=== PATIENT | male | born 1985 | race Caucasian/White ===

== ENCOUNTER → 2016-09-06 | Outpatient (CLI) | payer MEDICAID ==
--- NOTE | 2016-09-06 12:30 | RAD ---
HISTORY: Left wrist pain, nontraumatic Study: Left wrist four view Comparison: None Findings: No evidence for acute cortical disruption or dislocation can be identified. The carpal bones appear well aligned. The visualized portions of the distal radius and ulna are unremarkable. No signific ant soft tissue abnormality can be identified. the joints are normal. IMPRESSION: 1. Negative exam. Reported By:
--- NOTE | 2016-09-06 12:31 | RAD ---
HISTORY: Right wrist pain Study: Right wrist four view Comparison: Findings: No evidence for acute cortical disruption or dislocation can be identified. The carpal bones appear well aligned. The visualized portions of the distal radius and ulna are unremarkable. No signific ant soft tissue abnormality can be identified. the joints are normal. IMPRESSION: 1. Negative exam. Reported By:
== END ==
LOC: RAD 11:28
PROVIDERS: ATTEND Orthopaedic Surgery
DX: G56.03 Carpal tunnel syndrome, bilateral upper limbs (principal)
CPT/HCPCS: 73100

== ENCOUNTER → 2016-09-07 | Outpatient (CLI) | payer MEDICAID ==
[2016-09-07 16:55] LABS: BASOPHILS # (AUTO) 0.1 X10^3/uL (0.0-0.1); BASOPHILS % (AUTO) 1.3 % (0.2-1.0); EOSINOPHILS # (AUTO) 0.5 x10^3/uL (0.0-0.2); EOSINOPHILS % (AUTO) 5.2 % (0.9-2.9); HEMATOCRIT 44.6 % (42.0-54.0); HEMOGLOBIN 15.4 g/dL (13.5-18.0); LYMPHOCYTES # (AUTO) 2.2 X10^3/uL (1.3-2.9); LYMPHOCYTES % (AUTO) 23.6 % (21.0-51.0); MEAN CORPUSCULAR HEMOGLOBIN 29.5 pg (27.0-34.0); MEAN CORPUSCULAR HGB CONC 34.6 g/dL (33.0-35.0); MEAN CORPUSCULAR VOLUME 85.5 fL (80.0-100.0); MEAN PLATELET VOLUME 8.4 fL (7.4-11.0); MONOCYTES # (AUTO) 0.8 x10^3/uL (0.3-0.8); MONOCYTES % (AUTO) 8.3 % (0.0-13.0); NEUTROPHILS # (AUTO) 5.6 x10^3/uL (2.2-4.8); NEUTROPHILS % (AUTO) 61.6 % (42.0-75.0); PLATELET COUNT 254 X10^3/uL (150.0-450.0); RED BLOOD COUNT 5.21 X10^6/uL (4.7-6.0); RED CELL DISTRIBUTION WIDTH 13.2 % (11.6-16.5); WHITE BLOOD COUNT 9.2 X10^3/uL (3.6-10.0)
[2016-09-07 17:01] LABS: BILIRUBIN,URINE NEGATIVE (NEGATIVE); BLOOD/HEMOGLOBIN,URINE NEGATIVE (NEGATIVE); GLUCOSE, URINE NEGATIVE (NEGATIVE); KETONES,URINE NEGATIVE (NEGATIVE); LEUKOCYTE ESTERASE ,URINE NEGATIVE (NEGATIVE); NITRITES,URINE NEGATIVE (NEGATIVE); PROTEIN,URINE 1+ (NEGATIVE); UROBILINOGEN,URINE NORMAL (NORMAL)
--- NOTE | 2016-09-07 17:05 | RAD ---
HISTORY: Preop for wrist surgery Study: PA and lateral Comparison:none Findings: The trachea is midline. The cardiac silhouette is unremarkable. The lungs are clear without focal infiltrate or effusion. The bony thorax is unremarkable. IMPRESSION: 1. No acute cardiopulmonary disease. Reported By:
[2016-09-07 17:08] LABS: APPEARANCE,URINE CLEAR (CLEAR); BACTERIA,URINE TRACE /HPF (NEGATIVE); COLOR,URINE DARK YELLOW (YELLOW); RBC,URINE 0-1 /HPF (NEGATIVE); SQUAMOUS EPITHELIAL CELL,UR RARE /HPF (NEGATIVE)
[2016-09-07 17:09] LABS: AMORPHOUS SEDIMENT,UR 1+ /HPF (NEGATIVE); MUCUS,URINE MODERATE /HPF (NEGATIVE)
[2016-09-07 17:11] LABS: ALANINE AMINOTRANSFERASE 59 Units/L (12-78); ALBUMIN 4.2 g/dL (3.4-5.0); ALKALINE PHOSPHATASE 88 Units/L (46-116); ASPARTATE AMINO TRANSFERASE 28 Units/L (15-37); BLOOD UREA NITROGEN 12 mg/dL (7-18); CALCIUM 9.1 mg/dL (8.5-10.1); CHLORIDE 104 mmol/L (98-107); CREATININE 1.01 mg/dL (0.70-1.30); GLUCOSE 92 mg/dL (65-99); SODIUM 142 mmol/L (136-145); TOTAL PROTEIN 8.4 g/dL (6.4-8.2); eGFR BLACK RACES > 60 (>60); eGFR NON BLACK RACES > 60 (>60)
[2016-09-07 17:40] LABS: ERYTHROCYTE SEDIMENTATION RATE 8 MM/HOUR (0-15)
== END ==
LOC: RAD 15:54
PROVIDERS: ATTEND Orthopaedic Surgery
DX: Z01.818 Encounter for other preprocedural examination (principal); Z01.810 Encounter for preprocedural cardiovascular examination; Z01.811 Encounter for preprocedural respiratory examination; Z79.899 Other long term (current) drug therapy; Z11.8 Encounter for screening for other infectious and parasitic diseases; G56.03 Carpal tunnel syndrome, bilateral upper limbs
CPT/HCPCS: 36415; 71020; 80053; 81001; 85025; 85652; 86140; 87641; 93005; 93010

== ENCOUNTER 2016-09-13 06:41 | Day surgery (SDC) | payer MEDICAID ==
[2016-09-13] MEDS ORDERED: D5 LR 1000 ML 1,000 ML IV ONE (06:47)
[2016-09-13] MEDS: ANCEF VIAL 1 GM ONE ×2 (07:26→07:51)
[2016-09-13] MEDS: BACTROBAN OINT ONE ×2 (07:27→08:29)
[2016-09-13] MEDS: NS 50 ML IV 50 ML IV ONE ×2 (07:27→07:51)
[2016-09-13] MEDS ORDERED: NS IRRIGATION 1000 ML 1,000 ML with BACITRACIN VIAL 50,000 UNT IR ONE ×4 (07:27)
[2016-09-13] MEDS ORDERED: FENTANYL INJ 100 mcg ONE ×2 (07:46→09:00)
[2016-09-13] MEDS ORDERED: BICITRA 30 ML PO ONE (07:52)
[2016-09-13] MEDS ORDERED: LR 1000 ML IV 1,000 ML IV ONE (08:59)
[2016-09-13] MEDS ORDERED: MARCAINE 0.25% INJ ONE (09:16)
[2016-09-13] MEDS ORDERED: DILAUDID INJ IVP ONE ×2 (10:16→10:40)
[2016-09-13] MEDS ORDERED: DILAUDID INJ ONE (10:18)
[2016-09-13] MEDS ORDERED: BENADRYL INJ 50 MG VIAL IVP PRN (10:21)
[2016-09-13] MEDS ORDERED: REGLAN INJ 10 MG VIAL IVP PRN (10:21)
[2016-09-13] MEDS ORDERED: DILAUDID INJ IVP PRN (10:21)
[2016-09-13] MEDS ORDERED: PHENERGAN INJ 25 MG IVP PRN (10:21)
[2016-09-13] MEDS ORDERED: ZOFRAN INJ 4 MG VIAL IVP PRN ×2 (10:21→10:24)
[2016-09-13] MEDS ORDERED: PERCOCET TAB 5/325 MG PO PRN (10:24)
[2016-09-13] MEDS ORDERED: PHENERGAN INJ 25 MG IVP ONE (10:38)
[2016-09-13 11:56] VITALS: BP 167/106
[2016-09-13] MEDS ORDERED: ZOFRAN INJ 4 MG VIAL ONE (12:38)
[2016-09-13] MEDS ORDERED: VERSED ONE (12:38)
[2016-09-13] MEDS ORDERED: REGLAN INJ 10 MG VIAL ONE (12:38)
[2016-09-13] MEDS ORDERED: SUPRANE IN ONE (12:38)
[2016-09-13] MEDS ORDERED: DIPRIVAN 1 GM ONE (12:38)
== END 2016-09-13 12:02 | disposition home or self-care (01) | DRG 42 ==
LOC: SURG1 06:41
PROVIDERS: ATTEND Orthopaedic Surgery
PROC: 01N50ZZ Release Median Nerve, Open Approach (ICD-10-PCS; principal; 2016-09-13 07:30)
DX: G56.03 Carpal tunnel syndrome, bilateral upper limbs (principal)
CPT/HCPCS: A4222; S0020; J0690; J1170; J2250; J2405; J2550; J2765; J3010; J3490; J7120

== ENCOUNTER 2016-10-26 20:10 | Emergency (ER) | payer SELFPAY ==
[2016-10-26 20:19] VITALS: BP 151/93
--- NOTE | 2016-10-26 22:02 | DR.GENAD ---
HPI - PCP Primary Care Physician: NFD - Complaint/Symptoms Chief Complaint Doctors Comments: tingling in my arms since I had my carpal tunnel surgery. Chief Complaint:: PT STATES" MY LEFT ARM GOES NUMB AND HURTS AND I HAVE PAIN IN MY RT LEG AND IN MY NUB WHERE I HAD MY LEG TOOK OFF" - Nurses notes reviewed Nurses Notes Review: Yes - Source History Provided: Patient - Mode of Arrival Mode of Arrival: Ambulatory - Timing Onset of Chief Complaint: 10/26/16 PMH - PMH Past Medical History: No Past Surgical History: Yes Surgical History: Ortho Surgery Past Surgical History Comment: SHAWN AMPUTEE - Family History History of Family Medical Conditions: No - Social History Type of Tobacco Use: None Does any household member use tobacco: No Alcohol Use: None Do you use any recreational Drugs:: No Lives With: Family Lives Where: Home - infectious screening In the last 2 months have you had wt loss of >10#?: NO Have you had fever, night sweats or hemotysis?: No Have you traveled outside the country in the last 6 months?: No Isolation: Standard ROS - Review of Systems Respiratoy: No Symptoms Reported Cardiovascular: No Symptoms Reported Gastrointestinal/Abdominal: No Symptoms Reported Genitourinary: No Symptoms Reported Neurological: Numbness, Tingling Musculoskeletal: Other (phantom pain.) Endocrine: No Symptoms Reported Psychiatric: No Symptoms Reported All Other Systems: Reviewed and Negative PE - Vital Signs Vitals: Temperature 98.3 F Pulse Rate 84 Respiratory Rate 18 Blood Pressure 151/93 O2 Sat by Pulse Oximetry 99 - General Limitations: No Limitations General Appearance: Alert, In No Apparent Distress - Head Head Exam: Normal Inspection - Neck Neck Exam: Normal Inspection, Full ROM, Trachea Midline - Chest Chest Inspection: Normal Inspection - Respiratory Respiratory Exam: Normal Lung Sounds Bilat - Cardiovascular Cardiovascular Exam: Regular Rate, Normal Rhythm, Normal Heart Sounds - Abdominal Exam Abdominal Exam: Normal Inspection - Extremities Extremities Exam: Other (l BKA ) - Back Back Exam: Normal Inspection - Neurologic Neurological Exam: Alert, Oriented X3, CN II-XII Intact - Psychiatric Psychiatric Exam: Normal Affect, Normal Mood - Skin Skin Exam: Warm, Dry - Diagnosis Discharge Problem: Paresthesia and pain of left extremity - Discharge Plan Disposition: 01 HOME, SELF-CARE Condition: Stable - Follow ups/Referrals Follow ups/Referrals: NFD,None [Primary Care Provider] - 3 days - Instructions Instructions: Paresthesia Additional Instructions: I instructed patient that he needs an EMG and possibly MRI of his cervical spine. He plans to talk with his PCP and get these tests ordered.
== END 2016-10-26 22:40 | disposition home or self-care (01) ==
LOC: ER 20:10
DX: R20.8 Other disturbances of skin sensation (principal); M79.605 Pain in left leg
CPT/HCPCS: 99281; 99282

== ENCOUNTER 2017-06-26 20:54 | Emergency (ER) | payer SELFPAY ==
[2017-06-26 21:01] VITALS: BMI 33.0
[2017-06-26] MEDS ORDERED: ASPIRIN PO ONE (21:14)
[2017-06-26] MEDS ORDERED: ASPIRIN ONE (21:14)
--- NOTE | 2017-06-26 21:25 | DR.GENAD ---
HPI - PCP Primary Care Physician: [place] - HPI Comment HPI Comment: HISTORY BELOW. - Complaint/Symptoms Chief Complaint Doctors Comments: AMS, GENERALIZE MUSCLE TWICHING, CHEST PAIN, AND SYNCOPAL EPISODE. TIME IT STARTED WAS TODAY PER PATIENT. BROTHER WHO FOUND HIM HAVE NOT SEEN HIM FOR 2 WEEKS. Chief Complaint:: "PATIENT STATES, I PASSED OUT TODAY EARLIER, MY LEGS WILL NOT QUIT SHAKING, MY LEGS ARE WEAK WATER. I STAND OR WALK." NOT WITNESSED - Nurses notes reviewed Nurses Notes Review: Yes - Source History Provided: Patient - Mode of Arrival Mode of Arrival: Ambulatory - Timing Onset of Chief Complaint: 06/26/17 Came on: Suddenly - Duration Duration: Constant Duration: Days - Severity Severity: Moderate PMH - PMH Past Medical History: No Past Surgical History: Yes Surgical History: Ortho Surgery Past Surgical History Comment: LEFT PROSTHETIC LEG - Family History History of Family Medical Conditions: No - Social History Does patient currently use any type of tobacco product: No Have you used tobacco products in the last 12 months: No Type of Tobacco Use: Smokeless Alcohol Use: Occasionally Do you use any recreational Drugs:: No Lives With: Alone Lives Where: Home - infectious screening Have you traveled outside the country in the last 6 months?: No Isolation: Standard ROS - Review of Systems Constitutional: Weakness, Fatigue. negative: Chills, Fever Eyes: Diplopia, Other (NYSTAGMUS,) ENTM: negative: Ear Pain, Nose Discharge, Nose Congestion, Throat Pain Respiratoy: Non-Productive Cough, Short of Breath. negative: Wheezing, Hemoptysis Cardiovascular: Chest Pain, Palpitations, Syncope Gastrointestinal/Abdominal: negative: Abdominal Pain, Diarrhea, Nausea, Vomiting Genitourinary: Other (NO URINE OUT PUT TODAY.). negative: Dysuria, Hematuria Neurological: Anxiety, Headache, Weakness, Dizziness, Other (MUSCLE TWICHING.) Musculoskeletal: Back Pain, Muscle Pain Integumentary: Other (ABRASIONS UPPER EXTREMITIES.) Hematologic/Lymphatic: No Symptoms Reported Endocrine: No Symptoms Reported All Other Systems: Reviewed and Negative PE - Vital Signs Vitals: Temperature 97.8 F Pulse Rate [Apical] 100 Pulse Rate 133 Respiratory Rate 30 Blood Pressure [Left Arm] 167/84 Blood Pressure 150/89 O2 Sat by Pulse Oximetry 97 - General Limitations: Altered Mental Status General Appearance: Alert, Other (CONFUSE) - Head Head Exam: Normal Inspection - Eyes Eye exam: PERRL, EOMI, Nystagmus. negative: Scleral Icterus, Conjunctival Injection, Periorbital Swelling, Periorbital Tenderness - ENT ENT Exam: Normal External Ear Exam External Ear Exam: Normal External Inspection TM/Canal Exam: Bilateral Normal Nose Exam: Normal Nose Exam Mouth Exam: Normal Inspection Throat Exam: Normal Inspection - Neck Neck Exam: Trachea Midline - Chest Chest Inspection: Symmetric Chest Wall Rise - Respiratory Respiratory Exam: Normal Lung Sounds Bilat Respiratory Exam: Bilateral Rales, Lower Rales - Cardiovascular Cardiovascular Exam: Tachycardia - Abdominal Exam Abdominal Exam: Normal Bowel Sounds, Soft. negative: Tenderness - Extremities Extremities Exam: Other (LEFT BKA) - Back Back Exam: Normal Inspection - Neurologic Neurological Exam: Alert, Other (MUSCLE TWICHING). negative: Motor Sensory Deficit - Psychiatric Psychiatric Exam: Anxious - Skin Skin Exam: Other (ABRASIONS UPPER EXTREMITIES.) [facility] - Additional Information Additional Information Obtained From: Family - Differential Diagnosis Differential Diagnosis: CVA, SEPSIS, SC, PE, UTI, AMS, Course - Treatment Treatment: SEE ORDERS. - Reevaluation 1st: Unchanged 2nd: Improved (IMPROVING WITH IV FLUIDS) - Consultation Consultation Comments: PATIENT ACCEPTED FOR TRANSFER BY DR. LAROSE, [facility] IN [place] ED DEPARTMENT. - Education/Counseling Education/Counseling: Patient, Family, Education Educated On: Treatment, Diagnosis, Needs for Follow Up ROR - Labs Reviewed Laboratory Results Reviewed?: Yes Result Diagrams: 06/26/17 21:10 06/26/17 21:10 Laboratory: WBC 27.8 X10^3/uL (3.6-10.0) H 06/26/17 21:10 RBC 5.20 X10^6/uL (4.7-6.0) 06/26/17 21:10 Hgb 15.2 g/dL (13.5-18.0) 06/26/17 21:10 Hct 43.5 % (42.0-54.0) 06/26/17 21:10 MCV 83.6 fL (80.0-100.0) 06/26/17 21:10 MCH 29.1 pg (27.0-34.0) 06/26/17 21:10 MCHC 34.9 g/dL (33.0-35.0) 06/26/17 21:10 RDW 12.4 % (11.6-16.5) 06/26/17 21:10 Plt Count 376 X10^3/uL (150.0-450.0) 06/26/17 21:10 Plt Count Comment Adequate (ADEQUATE) 06/26/17 21:10 MPV 8.1 fL (7.4-11.0) 06/26/17 21:10 Neut % 90.9 % (42.0-75.0) H 06/26/17 21:10 Lymph % 3.6 % (21.0-51.0) L 06/26/17 21:10 [place] % 5.3 % (0.0-13.0) 06/26/17 21:10 Eos % 0.0 % (0.9-2.9) L 06/26/17 21:10 Baso % 0.2 % (0.2-1.0) 06/26/17 21:10 Neut # 25.3 x10^3/uL (2.2-4.8) H 06/26/17 21:10 Lymph # 1.0 X10^3/uL (1.3-2.9) L 06/26/17 21:10 [place] # 1.5 x10^3/uL (0.3-0.8) H 06/26/17 21:10 Eos # 0.0 x10^3/uL (0.0-0.2) 06/26/17 21:10 Baso # 0.0 X10^3/uL (0.0-0.1) 06/26/17 21:10 Absolute Nucleated RBC 0.0 /100WBC 06/26/17 21:10 Total Counted 100 06/26/17 21:10 Neutrophils % (Manual) 85 % (39-76) H 06/26/17 21:10 Band Neutrophils % 5 % (0-10) 06/26/17 21:10 Lymphocytes % (Manual) 6 % (13-43) L 06/26/17 21:10 Monocytes % (Manual) 4 % (4-9) 06/26/17 21:10 Plt Morphology Comment Normal (NORMAL) 06/26/17 21:10 RBC Morphology Normal (NORMAL) 06/26/17 21:10 INR Target Range - 06/26/17 21:10 INR 1.06 (0.8-1.3) 06/26/17 21:10 PTT 23.2 SECONDS (22.9-36.5) 06/26/17 21:10 PTT Comment - 06/26/17 21:10 D-Dimer 912 ng/mL (0-400) H* 06/26/17 21:10 Sample Site Lbra 06/26/17 22:59 ABG pH 7.410 (7.35-7.45) 06/26/17 22:59 ABG pCO2 41.0 mmHg (35.0-45.0) 06/26/17 22:59 ABG pO2 89.0 mmHg (80.0-100.0) 06/26/17 22:59 ABG HCO3 26.0 mmol/L (22-26) 06/26/17 22:59 ABG O2 Saturation 97.0 % (90-100) 06/26/17 22:59 ABG Base Excess 1.2 mmol/L (-2.0-2.0) 06/26/17 22:59 Artem Test Na 06/26/17 22:59 A-a Gradient 59.0 mmHg 06/26/17 22:59 FiO2 28.000 06/26/17 22:59 Blood Gas Comments Kailyn abg well-mtf 06/26/17 22:59 Sodium 137 mmol/L (136-145) 06/26/17 21:10 Corrected Sodium TNP 06/26/17 21:10 Potassium 3.8 mmol/L (3.5-5.1) 06/26/17 21:10 Chloride 98 mmol/L (98-107) 06/26/17 21:10 Carbon Dioxide 24.6 mmol/L (21-32) 06/26/17 21:10 BUN 11 mg/dL (7-18) 06/26/17 21:10 Creatinine 1.39 mg/dL (0.70-1.30) H 06/26/17 21:10 Est GFR (MDRD) Af Amer > 60 (>60) 06/26/17 21:10 Est GFR (MDRD) Non-Af > 60 (>60) 06/26/17 21:10 Glucose 98 mg/dL (65-99) 06/26/17 21:10 Lactic Acid 2.1 mmol/L (0.4-2.0) H 06/26/17 22:38 Calcium 8.4 mg/dL (8.5-10.1) L 06/26/17 21:10 Corrected Calcium TNP 06/26/17 21:10 Magnesium 3.1 mg/dL (1.7-2.9) H 06/26/17 21:10 Total Bilirubin 0.60 mg/dL (0.2-1.0) 06/26/17 21:10 AST 326 Units/L (15-37) H 06/26/17 21:10 ALT 71 Units/L (12-78) 06/26/17 21:10 Alkaline Phosphatase 105 Units/L (46-116) 06/26/17 21:10 Creatine Kinase 40048 Units/L (39-308) H 06/26/17 21:10 CK-MB (CK-2) 13.5 ng/mL (0-4.0) H* 06/26/17 21:10 CK/CKMB % Calc 0.0 % (<4) 06/26/17 21:10 Troponin I < 0.02 ng/mL (0-1.5) 06/26/17 21:10 C-Reactive Protein 12.20 mg/L (0-3.0) H 06/26/17 22:38 Total Protein 8.8 g/dL (6.4-8.2) H 06/26/17 21:10 Albumin 4.1 g/dL (3.4-5.0) 06/26/17 21:10 Globulin 4.7 g/dL (2.5-4.5) H 06/26/17 21:10 Albumin/Globulin Ratio 0.9 Ratio (1.1-2.1) L 06/26/17 21:10 Specimen Type Catherized urine 06/27/17 00:12 Urine Color Brown (YELLOW) 06/27/17 00:12 Urine Appearance Slightly hazy (CLEAR) 06/27/17 00:12 Urine pH 6.0 (5.0 - 8.0) 06/27/17 00:12 Ur Specific [place] 1.015 (1.000-1.030) 06/27/17 00:12 Urine Protein 3+ (NEGATIVE) 06/27/17 00:12 Urine Glucose (UA) Negative (NEGATIVE) 06/27/17 00:12 Urine Ketones 1+ (NEGATIVE) 06/27/17 00:12 Urine Occult Blood 5+ (NEGATIVE) 06/27/17 00:12 Urine Nitrite Positive (NEGATIVE) 06/27/17 00:12 Urine Bilirubin Negative (NEGATIVE) 06/27/17 00:12 Urine Urobilinogen Normal (NORMAL) 06/27/17 00:12 Ur Leukocyte Esterase 1+ (NEGATIVE) 06/27/17 00:12 Urine RBC 4-8 /HPF (NONE SEEN) 06/27/17 00:12 Urine WBC 0-5 /HPF (NONE SEEN) 06/27/17 00:12 Ur Squamous Epith Cells Rare /HPF (NEGATIVE) 06/27/17 00:12 Urine Bacteria Negative /HPF (NEGATIVE) 06/27/17 00:12 Granular Casts Few /LPF (NEGATIVE) 06/27/17 00:12 Ur Culture Indicated? No/not indicated 06/27/17 00:12 Urine Opiates Screen Negative (NEG=<300) 06/27/17 00:12 Urine Methadone Screen Negative (NEG=<300) 06/27/17 00:12 Ur Barbiturates Screen Negative (NEG=<200) 06/27/17 00:12 Ur Phencyclidine Scrn Negative (NEG=<25) 06/27/17 00:12 Ur Amphetamines Screen Negative (NEG=<1000) 06/27/17 00:12 U Benzodiazepines Scrn Negative (NEG=<200) 06/27/17 00:12 Urine Cocaine Screen Negative (NEG=<300) 06/27/17 00:12 U Marijuana (THC) Screen Negative (NEG=<50) 06/27/17 00:12 - XRAY XRAY Interpreted by: Radiologist XRAY Findings: REPORT DISCUSS WITH PATIENT AND FAMILY. - EKG Rhythm: ST - Diagnosis Discharge Problem: Elevated d-dimer Pneumonia Qualifiers: Pneumonia type: due to unspecified organism Rhabdomyolysis Qualifiers: Rhabdomyolysis type: non-traumatic Qualified Code(s): M62.82 - Rhabdomyolysis Mental status alteration Qualifiers: Altered mental status type: transient alteration of awareness Qualified Code(s) : R40.4 - Transient alteration of awareness UTI (urinary tract infection) Qualifiers: Urinary tract infection type: site unspecified Hematuria presence: without hematuria Qualified Code(s): N39.0 - Urinary tract infection, site not specified Leukocytosis Qualifiers: Leukocytosis type: bandemia Qualified Code(s): D72.825 - Bandemia Sepsis Qualifiers: Sepsis type: sepsis due to unspecified organism Qualified Code(s): A41.9 - Sepsis, unspecified organism Episode of syncope Qualifiers: Syncope type: unspecified Qualified Code(s): R55 - Syncope and collapse - Discharge Plan Disposition: 02 XFER [facility] HOSP Condition: Stable - Follow ups/Referrals Follow ups/Referrals: NFD,None [Primary Care Provider] - 3 days - Instructions
[2017-06-26] MEDS ORDERED: ATIVAN INJ 2 MG VIAL IVP ONE (21:26)
[2017-06-26] MEDS ORDERED: NS 1000 ML 1,000 ML IV ONE ×2 (21:26→22:13)
[2017-06-26 21:28] LABS: HEMOGLOBIN 15.2 g/dL (13.5-18.0)
[2017-06-26] MEDS ORDERED: NS 1000 ML 1,000 ML ONE ×2 (21:29→22:15)
[2017-06-26] MEDS ORDERED: ATIVAN INJ 2 MG VIAL ONE (21:30)
[2017-06-26 21:37] LABS: BASOPHILS % (AUTO) 0.2 % (0.2-1.0); HEMATOCRIT 43.5 % (42.0-54.0); LYMPHOCYTES % (AUTO) 3.6 % (21.0-51.0); MEAN CORPUSCULAR HEMOGLOBIN 29.1 pg (27.0-34.0); MEAN CORPUSCULAR HGB CONC 34.9 g/dL (33.0-35.0); MEAN CORPUSCULAR VOLUME 83.6 fL (80.0-100.0); MEAN PLATELET VOLUME 8.1 fL (7.4-11.0); MONOCYTES # (AUTO) 1.5 x10^3/uL (0.3-0.8); MONOCYTES % (AUTO) 5.3 % (0.0-13.0); NEUTROPHILS # (AUTO) 25.3 x10^3/uL (2.2-4.8); NEUTROPHILS % (AUTO) 90.9 % (42.0-75.0); PLATELET COUNT 376 X10^3/uL (150.0-450.0); RED CELL DISTRIBUTION WIDTH 12.4 % (11.6-16.5); WHITE BLOOD COUNT 27.8 X10^3/uL (3.6-10.0)
[2017-06-26 21:44] LABS: BLOOD UREA NITROGEN 11 mg/dL (7-18); CALCIUM 8.4 mg/dL (8.5-10.1); CARBON DIOXIDE 24.6 mmol/L (21-32); CHLORIDE 98 mmol/L (98-107); CREATININE 1.39 mg/dL (0.70-1.30); SODIUM 137 mmol/L (136-145); TROPONIN I < 0.02 ng/mL (0-1.5); eGFR BLACK RACES > 60 (>60); eGFR NON BLACK RACES > 60 (>60)
[2017-06-26 21:48] LABS: BAND NEUTROPHILS % 5 % (0-10); PLATELET MORPHOLOGY COMMENT NORMAL (NORMAL)
[2017-06-26 22:07] LABS: ALANINE AMINOTRANSFERASE 71 Units/L (12-78); ALBUMIN 4.1 g/dL (3.4-5.0); ALKALINE PHOSPHATASE 105 Units/L (46-116); ASPARTATE AMINO TRANSFERASE 326 Units/L (15-37); MAGNESIUM 3.1 mg/dL (1.7-2.9); TOTAL PROTEIN 8.8 g/dL (6.4-8.2)
--- NOTE | 2017-06-26 22:17 | CT ---
HISTORY: Passed out earlier Study: CT brain without contrast Comparison: None Technique: Multiple axial images of the brain were obtained from the skull base to the vertex without administra tion of IV contrast. Dose reduction techniques including Automated Exposure Control (AEC) and adjust ment of mA and kV were utilized. Findings: The brain parenchyma is within normal limits for patient's age. Prominent CSF space in the posterior fossa suggesting marie cisterna magna. No evidence of acute hemorrhage, midline shift, mass effect or abnormal extra-axial fluid collection. The ventricular system is symmetric and nondilated. The sof t tissues and osseous structures are unremarkable. The visualized paranasal sinuses are clear. IMPRESSION: 1.No acute intracranial abnormality. Reported By:
[2017-06-26 22:21] LABS: CREATINE KINASE MB 13.5 ng/mL (0-4.0)
--- NOTE | 2017-06-26 22:22 | RAD ---
Chest AP portable Indication: Syncope. Weakness. Comparison: 09/07/2016 Findings: There is no pneumothorax or effusion. There is no consolidation. Heart size is normal for t echnique. Impression: No acute chest process Reported By:
[2017-06-26 22:28] LABS: CREATINE KINASE 30384 Units/L (39-308)
[2017-06-26 22:34] LABS: C-REACTIVE PROTEIN 12.2 mg/L (0-3.0)
[2017-06-26 23:09] LABS: LACTIC ACID 2.1 mmol/L (0.4-2.0)
[2017-06-26 23:17] LABS: ABG BASE EXCESS 1.2 mmol/L (-2.0-2.0)
[2017-06-26] MEDS ORDERED: ROCEPHIN 1 GM IV PREMIX 1 GM/50 ML IV.SOLN. IV ONE ×2 (23:49→23:52)
--- NOTE | 2017-06-26 23:50 | CT ---
CT angiogram chest with contrast Indication: Elevated D-dimer. Dyspnea. Technique: Helical images through the chest after IV contrast. Coronal and sagittal reformats provide d. MIP images provided. Findings: Limited images through the upper abdomen shows no acute abnormality. Review of bone windows shows no destructive osseous lesion. Chest: There is focal aneurysm with peripheral calcifications seen in the aortic arch/proximal descen ding thoracic aorta this measures 3.5 cm in AP dimension. Focal narrowing seen on sagittal image 75 w ith possible dissection flap on axial image 39. The heart size is normal. No mediastinal abnormality seen. There is no pneumothorax with patchy left lower lobe superior segment tree-in-bud opacities noted. Patchy right upper lobe tree-in-bud opacitie s noted. Pulmonary artery bolus timing is poor, without large central filling defect identified. Subs egmental vessels are poorly evaluated. Impression: 1. Bolus timing is suboptimal. Significant pulmonary embolus cannot be excluded. 2. Patchy left lower lobe and right upper lobe tree-in-bud opacities suggest early pneumonia. 3. 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 Vascular surgery follow-up recomm ended. This appears to have been present on prior radiographs in retrospect THE AVAILABILITY OF THE REPORT AND FINDINGS WERE COMMUNICATED TO Dr. Mcgill by Dr. Wooten on 06/26/2017 Time called 11:50 p.m. Reported By:
[2017-06-27 00:26] LABS: BILIRUBIN,URINE NEGATIVE (NEGATIVE); BLOOD/HEMOGLOBIN,URINE 5+ (NEGATIVE); GLUCOSE, URINE NEGATIVE (NEGATIVE); KETONES,URINE 1+ (NEGATIVE); LEUKOCYTE ESTERASE ,URINE 1+ (NEGATIVE); NITRITES,URINE POSITIVE (NEGATIVE); PROTEIN,URINE 3+ (NEGATIVE); UROBILINOGEN,URINE NORMAL (NORMAL)
[2017-06-27 00:52] LABS: APPEARANCE,URINE SLIGHTLY HAZY (CLEAR); BACTERIA,URINE NEGATIVE /HPF (NEGATIVE); COLOR,URINE BROWN (YELLOW); SQUAMOUS EPITHELIAL CELL,UR RARE /HPF (NEGATIVE)
[2017-06-27 00:53] LABS: GRANULAR CASTS,URINE FEW /LPF (NEGATIVE)
[2017-06-27] MEDS ORDERED: NS 1000 ML 1,000 ML ONE (01:09)
[2017-06-27] MEDS ORDERED: NS 1000 ML 1,000 ML IV ONE (01:15)
[2017-06-27] MEDS ORDERED: ZOSYN VIAL 3.375 GM 3.375 GM in NS 100 ML IV + SPIKE MINIBAG* 100 ML IV ONE (01:16)
[2017-06-27] MEDS ORDERED: ZOSYN VIAL 3.375 GM IV ONE (01:21)
[2017-06-27] MEDS ORDERED: NS 100 ML IV 100 ML IV ONE (01:21)
[2017-06-27] MEDS ORDERED: ATIVAN INJ 2 MG VIAL IVP ONE (02:29)
[2017-06-27] MEDS ORDERED: ATIVAN INJ 2 MG VIAL ONE (02:29)
[2017-06-27 02:47] VITALS: BP 167/84
== END 2017-06-27 02:50 | disposition short-term general hospital (02) ==
LOC: ER 21:04
DX: R55 Syncope and collapse (principal); J18.9 Pneumonia, unspecified organism; R79.1 Abnormal coagulation profile; M62.82 Rhabdomyolysis; R40.4 Transient alteration of awareness; N39.0 Urinary tract infection, site not specified; D72.825 Bandemia; A41.9 Sepsis, unspecified organism; R00.0 Tachycardia, unspecified
CPT/HCPCS: 36415; 36600; 51702; 70450; 71045; 71275; 80053; 80307; 81001; 82550; 82553; 82803; 83605; 83735; 84484; 85025; 85378; 85610; 85730; 86140; 87040; 87086; 93005; 93010; 93041; 96365; 96367; 96374; 96375; 99285; A4222; G0434; J0696; J2060; J2543